=== PATIENT | female | born 1975 | race Caucasian/White ===

== ENCOUNTER → 2016-07-11 | Outpatient (CLI) | payer OTHER ==
[~2016-07-11] MED LIST: MOTRIN 600600 MG/TAB PO; PEPCID AC 10MG10 MG PO; PERCOCET 325 MG1 TA2 PO; PRENATAL1 TA1 PO
[2016-07-11 18:10] LABS: ADD PATHOLOGY DIFF REVIEW NO
[2016-07-11 18:16] LABS: HEMATOCRIT 38.7 % (37.0-47.0); MEAN CELL VOLUME 93 fl (80.0-100.0); MEAN CORPUSCULAR HEMOGLOBIN 31 pg (27.0-31.0); MEAN CORPUSCULAR HGB CONC 34 g/dl (33.0-37.0); MEAN PLATELET VOLUME 9.5 fl (7.4-10.4); PLATELET COUNT 165 K/mm3 (130-400); RED BLOOD COUNT 4.15 M/mm3 (4.10-5.30); WHITE BLOOD COUNT 5.9 K/mm3 (4.8-10.8)
[2016-07-11 18:22] LABS: ALBUMIN 3.8 gm/dL (3.5-5.0); BILIRUBIN,TOTAL 0.6 mg/dL (0.0-1.0); CALCIUM 8.8 mg/dL (8.4-10.2); CREATININE, serum 0.86 mg/dL (0.52-1.25); MAGNESIUM 1.8 mg/dL (1.6-2.3); POTASSIUM 3.7 mmol/L (3.4-5.0); TOTAL PROTEIN 6.9 gm/dL (6.4-8.2)
[2016-07-11 18:32] LABS: BAND 19 % (0-10); NEUTROPHILS 66 % (42.0-75.2); PLATELET ESTIMATE NORMAL (NORMAL); TOTAL CELLS COUNTED 100
[2016-07-11 18:53] LABS: INFLUENZA B NEGATIVE
== END ==
LOC: COL.RAD 17:31 → COL.LAB 17:31
PROVIDERS: Internal Medicine
DX: M41.84 Other forms of scoliosis, thoracic region (principal); R50.81 Fever presenting with conditions classified elsewhere; R06.02 Shortness of breath; R10.84 Generalized abdominal pain

== ENCOUNTER → 2016-09-06 | Outpatient (CLI) | payer OTHER ==
[2016-09-07 20:57] LABS: ESTRADIOL <10 pg/mL (()); PROGESTERONE 0.1 ng/mL (())
== END ==
LOC: COL.LAB 16:45
PROVIDERS: Obstetrics & Gynecology Reproductive Endocrinology
DX: N92.1 Excessive and frequent menstruation with irregular cycle (principal)

== ENCOUNTER → 2016-11-10 | Outpatient (CLI) | payer OTHER ==
[2016-11-10 17:37] LABS: HIV 1/2 Antibodies Non-Reactive; HIV-1p24 Antigen Non-Reactive
== END ==
LOC: COL.LAB 16:54
PROVIDERS: Obstetrics & Gynecology Reproductive Endocrinology
DX: N97.9 Female infertility, unspecified (principal); Z11.3 Encounter for screening for infections with a predominantly sexual mode of transmission

== ENCOUNTER → 2016-12-19 | Outpatient (CLI) | payer OTHER ==
[2016-12-19 16:50] LABS: ADD PATHOLOGY DIFF REVIEW NO
[2016-12-19 17:00] LABS: HEMATOCRIT 39.3 % (37.0-47.0); HEMOGLOBIN 13.4 g/dl (12.5-16.0); MEAN CELL VOLUME 94 fl (80.0-100.0); MEAN CORPUSCULAR HEMOGLOBIN 32 pg (27.0-31.0); MEAN CORPUSCULAR HGB CONC 34 g/dl (33.0-37.0); MEAN PLATELET VOLUME 9.5 fl (7.4-10.4); PLATELET COUNT 164 K/mm3 (130-400); RED BLOOD COUNT 4.19 M/mm3 (4.10-5.30); REDCELL DISTRIBUTION WIDTH-CV 12.9 % (11.5-14.5); WHITE BLOOD COUNT 4.4 K/mm3 (4.8-10.8)
[2016-12-19 17:01] LABS: PH 6 (5-8); SQUAMOUS EPITHELIAL None Seen /hpf; URINE APPEARANCE Clear; URINE BACTERIA None Seen /hpf; URINE BILIRUBIN Negative (NEGATIVE); URINE BLOOD 1+ (NEGATIVE); URINE COLOR Yellow; URINE GLUCOSE Negative (NEGATIVE); URINE KETONE Negative (NEGATIVE); URINE RBC 0-2 /hpf; URINE UROBILINOGEN Negative (NEGATIVE); URINE WBC 0-2 /hpf
[2016-12-19 17:20] LABS: ADJUSTED CALCIUM 8.7 mg/dL (8.4-10.2); ALBUMIN 3.8 gm/dL (3.5-5.0); BILIRUBIN,TOTAL 0.4 mg/dL (0.0-1.0); CALCIUM 8.5 mg/dL (8.4-10.2); CREATININE, serum 1.04 mg/dL (0.52-1.25); MAGNESIUM 1.7 mg/dL (1.6-2.3); POTASSIUM 3.3 mmol/L (3.4-5.0); TOTAL PROTEIN 6.6 gm/dL (6.4-8.2)
[2016-12-19 17:39] LABS: BAND 29 % (0-10); NEUTROPHILS 48 % (42.0-75.2); PLATELET ESTIMATE NORMAL (NORMAL); TOTAL CELLS COUNTED 100
== END ==
LOC: COL.LAB 16:20
PROVIDERS: Internal Medicine
DX: R10.9 Unspecified abdominal pain (principal)

== ENCOUNTER → 2017-04-19 | Outpatient (CLI) | payer OTHER ==
[2017-04-19 14:31] LABS: THYROID STIMULATING HORMONE 1.89 uIU/mL (0.465-4.680)
== END ==
LOC: COL.LAB 13:10
PROVIDERS: Obstetrics & Gynecology Reproductive Endocrinology
DX: O09.01 Supervision of pregnancy with history of infertility, first trimester (principal); Z3A.00 Weeks of gestation of pregnancy not specified

== ENCOUNTER → 2017-04-25 | Outpatient (CLI) | payer OTHER | LOC: COL.LAB 09:39 | DX: O09.01 Supervision of pregnancy with history of infertility, first trimester (principal) ==

== ENCOUNTER 2017-07-24 16:28 | Outpatient (CLI) | payer OTHER ==
[~2017-07-24] VITALS: Ht 185.4 cm; Wt 70.5 kg
[~2017-07-24 16:28] MED LIST changes: +PRENATAL MVI PO; -PRENATAL1 TA1 PO
[2017-07-24 16:50] VITALS: BP 109/65; PULSE 79; TEMP 98.4
[2017-07-24] MEDS ORDERED: ZANTAC 150MG T150 MG PO (16:53)
[2017-07-24 16:55] LABS: HEMATOCRIT 37.4 % (37.0-47.0); HEMOGLOBIN 12.7 g/dl (12.5-16.0); MEAN CELL VOLUME 96 fl (80.0-100.0); MEAN CORPUSCULAR HEMOGLOBIN 33 pg (27.0-31.0); MEAN CORPUSCULAR HGB CONC 34 g/dl (33.0-37.0); MEAN PLATELET VOLUME 9.5 fl (7.4-10.4); PLATELET COUNT 176 K/mm3 (130-400); RED BLOOD COUNT 3.91 M/mm3 (4.10-5.30); REDCELL DISTRIBUTION WIDTH-CV 13.1 % (11.5-14.5)
[2017-07-24 17:04] LABS: ALBUMIN 3.5 gm/dL (3.5-5.0); BILIRUBIN,TOTAL 0.2 mg/dL (0.0-1.0); CALCIUM 8.2 mg/dL (8.4-10.2); CREATININE, serum 0.63 mg/dL (0.52-1.25); POTASSIUM 3.4 mmol/L (3.4-5.0); TOTAL PROTEIN 6.3 gm/dL (6.4-8.2)
[2017-07-24 17:39] LABS: THYROID STIMULATING HORMONE 2.68 uIU/mL (0.465-4.680)
== END 2017-07-24 19:15 | disposition home or self-care (01) ==
LOC: EUO 16:28
PROVIDERS: Obstetrics & Gynecology
DX: O99.282 Endocrine, nutritional and metabolic diseases complicating pregnancy, second trimester (principal); E86.0 Dehydration; O21.9 Vomiting of pregnancy, unspecified; Z3A.18 18 weeks gestation of pregnancy
CPT/HCPCS: J7030

== ENCOUNTER 2017-11-14 14:05 | Inpatient (IN) | payer OTHER ==
[~2017-11-14] VITALS: Ht 182.9 cm; Wt 77.3 kg
[~2017-11-14 14:05] MED LIST changes: +ZANTAC 150MG T150 MG PO
[2017-11-14 14:32] VITALS: BP 112/72; PULSE 70; TEMP 98.1
[2017-11-14 20:30] VITALS: BP 105/59; PULSE 62; TEMP 98.2
[2017-11-15 07:45] VITALS: BP 110/62; PULSE 58; TEMP 97.7
[2017-11-15 16:30] VITALS: BP 95/58; PULSE 78; TEMP 98.7
[2017-11-15 19:05] VITALS: BP 109/66; PULSE 74; TEMP 97.8
[2017-11-16 08:20] VITALS: BP 106/74; PULSE 60; TEMP 97.6
== END 2017-11-16 11:55 | disposition home or self-care (01) | DRG 782 ==
LOC: OB 14:05
DX: O41.03X0 Oligohydramnios, third trimester, not applicable or unspecified (principal); Z3A.34 34 weeks gestation of pregnancy
CPT/HCPCS: J0702; J7120

== ENCOUNTER 2017-11-20 14:51 | Outpatient (CLI) | payer OTHER ==
[2017-11-20 15:15] VITALS: BP 98/75; PULSE 78; TEMP 98.5
[2017-11-20 15:40] LABS: CALCIUM 8.5 mg/dL (8.4-10.2); CREATININE, serum 0.6 mg/dL (0.52-1.25); POTASSIUM 3.6 mmol/L (3.4-5.0)
== END 2017-11-20 17:30 | disposition home or self-care (01) ==
LOC: EUO 14:51
PROVIDERS: Obstetrics & Gynecology
DX: O41.03X0 Oligohydramnios, third trimester, not applicable or unspecified (principal); Z3A.35 35 weeks gestation of pregnancy
CPT/HCPCS: J7030

== ENCOUNTER 2017-12-18 09:30 | Outpatient (RCR) | payer OTHER ==
[2017-11-30 14:57] VITALS: BP 115/69; PULSE 92; TEMP 98.2
[2017-12-04 15:13] VITALS: BP 118/81; PULSE 74; TEMP 98.8
[2017-12-11 15:14] VITALS: BP 111/78; PULSE 70; TEMP 98
[~2017-12-18] VITALS: Ht 182.9 cm; Wt 76.9 kg
[2017-12-20] MEDS ORDERED: IBU600 MG PO (08:38)
[2017-12-20] MEDS ORDERED: PERCOCET 325 MG1 TA2 PO (08:38)
== END 2017-12-19 14:33 | disposition home or self-care (01) ==
LOC: EUO 09:30
DX: O41.03X1 Oligohydramnios, third trimester, fetus 1 (principal); Z3A.36 36 weeks gestation of pregnancy
CPT/HCPCS: J7030

== ENCOUNTER 2017-12-19 06:46 | Inpatient (IN) | payer OTHER ==
[2017-12-19] VITALS (18 sets, daily range): BP systolic 109–143; BP diastolic 69–113; PULSE 53–71; TEMP 97.8–98
[~2017-12-19] VITALS: Ht 183 cm; Wt 78.2 kg
[2017-12-19 11:03] LABS: BASO % 0.1 % (0.0-2.0); EOS % 0.2 % (0-4.0); GRAN # 5.4 (1.4-6.5); GRAN % 61.5 % (42.2-75.2); HEMOGLOBIN 12.3 g/dl (12.5-16.0); LYMPH # 2.6 (1.2-3.4); LYMPH % 29.7 % (20.0-51.0); MEAN CELL VOLUME 93 fl (80.0-100.0); MEAN CORPUSCULAR HEMOGLOBIN 32 pg (27.0-31.0); MEAN CORPUSCULAR HGB CONC 35 g/dl (33.0-37.0); MEAN PLATELET VOLUME 11.1 fl (7.4-10.4); MONO # 0.7 (0.1-0.6); MONO % 7.7 % (1.7-9.3); PLATELET COUNT 168 K/mm3 (130-400); RED BLOOD COUNT 3.81 M/mm3 (4.10-5.30); REDCELL DISTRIBUTION WIDTH-CV 13.2 % (11.5-14.5)
[2017-12-19 11:06] LABS: HEMATOCRIT 35.6 % (37.0-47.0)
[2017-12-20 01:15] VITALS: BP 113/83; PULSE 80; TEMP 98
[2017-12-20 06:05] VITALS: BP 111/71; PULSE 65; TEMP 98.2
[2017-12-20] MEDS ORDERED: PERCOCET 325 MG1 TA2 PO (08:38)
[2017-12-20] MEDS ORDERED: IBU600 MG PO (08:38)
[2017-12-20 16:47] VITALS: BP 122/46; PULSE 78
[2017-12-20 21:00] VITALS: BP 117/77; PULSE 76; TEMP 98.1
[2017-12-21 08:13] VITALS: BP 118/82; PULSE 65; TEMP 98.3
[2017-12-21 16:15] VITALS: BP 121/70; PULSE 84; TEMP 98.4
[2017-12-21 20:30] VITALS: BP 125/85; PULSE 67; TEMP 97.7
[2017-12-22] MEDS ORDERED: CEPHALEXIN500 M1 PO (08:49)
[2017-12-22 08:55] VITALS: BP 115/79; PULSE 70; TEMP 98.3
== END 2017-12-22 12:30 | disposition home or self-care (01) | DRG 765 ==
LOC: LDR 06:46 → OB 09:42
PROVIDERS: Obstetrics & Gynecology
PROC: 10D00Z1 Extraction of Products of Conception, Low, Open Approach (ICD-10-PCS; principal; 2017-12-19)
DX: O34.211 Maternal care for low transverse scar from previous cesarean delivery (principal); O41.03X0 Oligohydramnios, third trimester, not applicable or unspecified; Z3A.39 39 weeks gestation of pregnancy; Z37.0 Single live birth; O32.1XX0 Maternal care for breech presentation, not applicable or unspecified
CPT/HCPCS: J0690; J1885; J2175; J2370; J2405; J3010; J7120

== ENCOUNTER → 2018-08-03 | Outpatient (CLI) | payer OTHER ==
[~2018-08-03] MED LIST changes: +CEPHALEXIN500 M1 PO; +IBU600 MG PO
== END ==
LOC: COL.RAD 11:57
DX: S22.42XA Multiple fractures of ribs, left side, initial encounter for closed fracture (principal)
CPT/HCPCS: Q9967

== ENCOUNTER 2019-05-05 13:46 | Emergency (ER) | payer OTHER ==
[~2019-05-05] VITALS: Ht 2.5 cm; Wt 65.9 kg
[2019-05-05 13:57] VITALS: TEMP 98
[2019-05-05 14:17] LABS: BASO % 0.2 % (0.0-2.0); GRAN % 74.1 % (42.2-75.2); HEMATOCRIT 42.1 % (37.0-47.0); HEMOGLOBIN 14.1 g/dl (12.5-16.0); LYMPH # 1.4 (1.2-3.4); LYMPH % 17.2 % (20.0-51.0); MEAN CELL VOLUME 94 fl (80.0-100.0); MEAN CORPUSCULAR HEMOGLOBIN 32 pg (27.0-31.0); MEAN CORPUSCULAR HGB CONC 34 g/dl (33.0-37.0); MEAN PLATELET VOLUME 9.4 fl (7.4-10.4); MONO # 0.7 (0.1-0.6); MONO % 8.3 % (1.7-9.3); PLATELET COUNT 197 K/mm3 (130-400); RED BLOOD COUNT 4.48 M/mm3 (4.10-5.30); REDCELL DISTRIBUTION WIDTH-CV 13.2 % (11.5-14.5)
[2019-05-05 14:42] LABS: ALBUMIN 4.3 gm/dL (3.5-5.0); BILIRUBIN,TOTAL 0.8 mg/dL (0.0-1.0); C-REACTIVE PROTEIN 0.6 mg/dL (0.0-0.9); CALCIUM 8.7 mg/dL (8.4-10.2); CREATININE, serum 0.77 (0.52-1.25); POTASSIUM 4.2 mmol/L (3.4-5.0); TOTAL PROTEIN 7.1 gm/dL (6.4-8.2)
[2019-05-05 16:06] LABS: GLUCOSE,CSF 49 mg/dL (40-70); TOTAL PROTEIN,CSF 71 mg/dL (15-45)
[2019-05-05 16:48] LABS: CSF APPEARANCE CLEAR; CSF COLOR COLORLESS; CSF MONONUCLEAR 20 % (70-100); CSF POLYMORPHONUCLEAR 80 % (0-6); CSF RBC 2 /mm3 (0-0)
[2019-05-05 16:53] LABS: CSF APPEARANCE CLEAR; CSF COLOR COLORLESS; CSF MONONUCLEAR 20 % (70-100); CSF POLYMORPHONUCLEAR 80 % (0-6); CSF RBC 2 /mm3 (0-0)
[2019-05-05] MEDS ORDERED: NORCO 325 MG-51 TAB PO (17:32)
[2019-05-05] MEDS ORDERED: ZOFRAN ODT4 MG PO (17:32)
[2019-05-05 17:55] VITALS: BP 101/69; PULSE 63
== END 2019-05-05 17:55 | disposition home or self-care (01) ==
LOC: COL.ER 13:46
PROVIDERS: Emergency Medicine; Family Medicine
DX: G03.0 Nonpyogenic meningitis (principal)
CPT/HCPCS: J0696; J1885; J2405; J3010; J7030

== ENCOUNTER 2019-05-08 16:21 | Outpatient (CLI) | payer OTHER ==
[~2019-05-08] VITALS: Ht 185.4 cm; Wt 66.1 kg
[~2019-05-08 16:21] MED LIST changes: +NORCO 325 MG-51 TAB PO; +ZOFRAN ODT4 MG PO
[2019-05-08 16:40] VITALS: BP 103/72; PULSE 58; TEMP 97.7
== END 2019-05-08 18:57 | disposition home or self-care (01) ==
LOC: EUO 16:21
DX: G03.9 Meningitis, unspecified (principal)
CPT/HCPCS: J1885; J2405; J3010; J7030

== ENCOUNTER 2019-05-10 16:47 | Outpatient (CLI) | payer OTHER ==
[2019-05-10 17:15] VITALS: BP 129/62; BP 145/69; PULSE 73; PULSE 97; TEMP 97.9; TEMP 98
[2019-05-10 18:18] VITALS: BP 115/64; TEMP 98.4
--- NOTE | 2019-05-10 18:59 | NUR ---
Pt rates pain at a 3 on 0-10 scale.PT DISCHARGE IN CARE OF .INT removed,catheter tip intact.
== END 2019-05-10 19:00 | disposition home or self-care (01) ==
LOC: EUO 16:47
DX: G03.9 Meningitis, unspecified (principal)
CPT/HCPCS: J1885; J2405; J3010; J7030

== ENCOUNTER → 2021-04-11 | Outpatient (CLI) | payer OTHER | LOC: COL.RAD 17:22 | DX: R06.02 Shortness of breath (principal); R07.9 Chest pain, unspecified ==

== ENCOUNTER → 2022-04-01 | Outpatient (CLI) | payer OTHER ==
[2022-04-01 09:26] LABS: BASO # 0.1 K/mm3 (0.0-0.2); EOS # 0.1 K/mm3 (0.0-0.7); GRAN # 2.5 K/mm3 (1.4-6.5); GRAN % 51.5 % (42.2-75.2); HEMATOCRIT 38.6 % (37.0-47.0); HEMOGLOBIN 13.4 g/dl (12.5-16.0); LYMPH # 1.8 K/mm3 (1.2-3.4); LYMPH % 38.1 % (20.0-51.0); MEAN CELL VOLUME 94 fl (80.0-100.0); MEAN CORPUSCULAR HEMOGLOBIN 33 pg (27-31); MEAN CORPUSCULAR HGB CONC 35 g/dl (33.0-37.0); MEAN PLATELET VOLUME 9.1 fl (7.4-10.4); MONO # 0.4 K/mm3 (0.1-0.6); MONO % 8.4 % (1.7-9.3); PLATELET COUNT 176 K/mm3 (130-400); RED BLOOD COUNT 4.11 M/mm3 (4.10-5.30); REDCELL DISTRIBUTION WIDTH-CV 12.4 % (11.5-14.5)
[2022-04-01 09:45] LABS: ALBUMIN 3.8 gm/dL (3.5-5.0); BILIRUBIN,TOTAL 0.6 mg/dL (0.2-1.2); CALCIUM 8.7 mg/dL (8.4-10.2); CHOLESTEROL RISK RATIO 2.1; CREATININE, serum 0.87 mg/dL (0.57-1.11); POTASSIUM 4.1 mmol/L (3.5-4.5); TOTAL PROTEIN 6.4 gm/dL (6.2-8.1)
[2022-04-01 10:06] LABS: TSH w REFLEX 2.25 uIU/mL (0.350-4.940)
== END ==
LOC: COL.LAB 08:55
PROVIDERS: Internal Medicine
DX: Z01.89 Encounter for other specified special examinations (principal)